=== PATIENT | male | born 1970 | race Caucasian/White ===

== ENCOUNTER 2016-07-15 15:51 | Emergency (ER) | payer OTHER ==
[2016-07-15 16:10] VITALS: BP 129/80; PULSE 87; TEMP 97.6; BMI 27.3
[2016-07-15] MEDS ORDERED: IBUPROFEN 600 MG TABLET (FP) PO ONE ×2 (17:43→17:45)
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
== END 2016-07-15 17:53 | disposition home or self-care (01) ==
LOC: JERFT 15:51
DX: S39.012A Strain of muscle, fascia and tendon of lower back, initial encounter (principal); X50.0XXA Overexertion from strenuous movement or load, initial encounter; X02.8XXA Other exposure to controlled fire in building or structure, initial encounter; Y93.89 Activity, other specified; Y92.61 Building [any] under construction as the place of occurrence of the external cause; Y99.0 Civilian activity done for income or pay
CPT/HCPCS: 99281-25